=== PATIENT | male | born 1965 | race Caucasian/White ===

== ENCOUNTER → 2023-06-21 09:25 | Outpatient (REF) | payer BC, SELFPAY | LOC: HWRAD 09:25 | PROVIDERS: ATTENDING PHYSICIAN Family Medicine Sports Medicine; FAMILY PHYSICIAN Internal Medicine | DX: M84.351D Stress fracture, right femur, subsequent encounter for fracture with routine healing (principal); M25.551 Pain in right hip; M25.851 Other specified joint disorders, right hip; M16.11 Unilateral primary osteoarthritis, right hip | CPT/HCPCS: 77080 ==

== ENCOUNTER → 2023-06-28 09:17 | Outpatient (REF) | payer BC, SELFPAY | LOC: HWRAD 09:17 | PROVIDERS: ATTENDING PHYSICIAN Otolaryngology; FAMILY PHYSICIAN Internal Medicine | DX: R51.9 Headache, unspecified (principal); J32.2 Chronic ethmoidal sinusitis | CPT/HCPCS: 70450 ==

== ENCOUNTER 2024-03-10 23:15 | Emergency (ER) | payer BC, SELFPAY ==
[2024-03-10 23:17] VITALS: BP 139/91
--- NOTE | 2024-03-11 00:03 | ED.GENMED ---
History of Present Illness
General
Chief Complaint: Skin Surface Trauma
Time Seen by Provider: 03/11/24 00:03
History of Present Illness
History of Present Illness:
TIME OF INITIAL ENCOUNTER: 12 AM
HPI: Patient presents due to left hand laceration. Approximately 7 hours ago, the patient cut his left hand on glass as he tried to help his pick something up. He has no sensation of retained foreign body. He has excellent function of the
fingers.
EXAM:
GENERAL: Well appearing in no distress
HEENT: Moist oral mucosa
NEUROLOGIC: Excellent strength all extremities, no obvious coordination deficits
PSYCHIATRIC: Appropriate mental status, normal insight and judgement
EXTREMITIES: 2.5 cm V shaped laceration to the volar aspect of the left hand with excellent function of the fingers
SKIN: No rash, no lesions
NUMBER AND COMPLEXITY OF PROBLEMS ADDRESSED AT THE ENCOUNTER
� Chronic conditions affecting care: has had viral meningitis, GERD
� Acute Exacerbation and/or Progression of Chronic Illness: This is an acute problem
� Differential Diagnosis includes: Hand laceration, tendon involvement not noted on exam
AMOUNT AND/OR COMPLEXITY OF DATA TO BE REVIEWED AND ANALYZED
� I performed an independent evaluation of and my interpretation is:
EKG:
CT:
X-rays:
Laboratory Studies:
Other:
� Review of other/old records: The patient was seen here for colonoscopy in 2021
� Clinical information was obtained by an independent historian: I spoke to the at bedside
� Prescriptions/Medications Considered but not given: The patient is otherwise healthy, antibiotics not indicated
� Further testing considered but not performed: No indication for x-rays at this time
RISK OF COMPLICATIONS AND/OR MORBIDITY OR MORTALITY OF PATIENT MANAGEMENT
� Social determinants of health affecting care: Lives at home
� Discussion with other providers:
� Escalation of care including admission/observation vs risk of discharge considered: Laceration was cleaned, irrigated, expected for foreign body, and suture
ANY OTHER UPDATES:
Past History
Past History
ED Past Medical History: Other (Allergies, sinusitis, GERD)
ED Past Surgical History: Urological
Social History
Tobacco: Non-smoker
Personal:
Living: with family
Phy Exam
Physical Exam
Physical Exam:
See HPI
Course
Vital Signs
Initial and Last Documented VS:
Initial Vital Signs
Temp Pulse Resp BP Pulse Ox
98 F 73 16 139/91 99
03/10/24 23:17 03/10/24 23:17 03/10/24 23:17 03/10/24 23:17 03/10/24 23:17
Last Documented Vital Signs
Temp Pulse Resp BP Pulse Ox
98 F 73 16 139/91 99
03/10/24 23:17 03/10/24 23:17 03/10/24 23:17 03/10/24 23:17 03/10/24 23:17
Procedures
Laceration Closure
Left Volar Hand:
Status of Wound: clean
Description of Wound Edges: sharp
Preparation: cleaned with saline and other (Chlorhexidine)
Anesthesia: 1% Lidocaine with epi
Revision/Debridement: routine- no revision
Wound exploration: explored to base- no FB
Type of Closure: single layer closure
Skin Closure Material: 4-0 nylon
Number of sutures: 3
*Critical Care Note
Total Time (30-74mins, 75-104mins- exclusive of procedures): Not Applicable
ED Attending Note
-
Portions of this chart may have been created with voice recognition software.� Occasional wrong word or��sound alike� substitutions may have occurred due to the inherent limitations of voice recognition software.
Discharge Plan
Departure
Patient Disposition: Home (Routine Discharge)
Date of Disposition: 03/11/24
Time of Disposition: 00:29
Patient with high blood pressure during this ER visit?: Yes
Discharge Problem:
Laceration
Instructions: Laceration Repair With [place] (DC), BLOOD PRESSURE
Prescriptions:
No Action
ibuprofen [Advil] 200 MG tablet
2 tab PO
diclofenac sodium 75 MG tablet,delayed release (DR/EC)
75 mg PO BID
Activity Restrictions/Additional Instructions:
Have stitches removed by your doctor in approximately 10 days. You can switch to just a regular Band-Aid tomorrow and then afterward you could leave it open if you would prefer.
Interventions
Interventions:
*Risk Screen - Suicide Last Done: 03/10/24 23:17
*Neglect/Abuse Screening Last Done: 03/10/24 23:17
Discharge Date and Time
Print Language: KHMER
[2024-03-11] MEDS: ADACEL 0.5 ML IM (00:37)
== END 2024-03-11 00:52 | disposition home or self-care (01) ==
LOC: EMR 23:15
PROVIDERS: EMERGENCY PHYSICIAN Emergency Medicine; FAMILY PHYSICIAN Internal Medicine
DX: S61.412A Laceration without foreign body of left hand, initial encounter (principal); W25.XXXA Contact with sharp glass, initial encounter; Z23 Encounter for immunization
CPT/HCPCS: 12001; 90471; 99282; 90715

== ENCOUNTER → 2024-09-11 13:52 | Outpatient (REF) | payer BC, SELFPAY | LOC: HWRAD 13:52 | PROVIDERS: ATTENDING PHYSICIAN Internal Medicine Critical Care Medicine; FAMILY PHYSICIAN Internal Medicine | DX: R05.3 Chronic cough (principal) | CPT/HCPCS: 71046 ==

== ENCOUNTER → 2024-12-28 08:20 | Outpatient (REF) | payer BC, SELFPAY | LOC: HWRAD 08:20 | PROVIDERS: ATTENDING PHYSICIAN Internal Medicine Critical Care Medicine; FAMILY PHYSICIAN Internal Medicine | DX: R05.3 Chronic cough (principal) | CPT/HCPCS: 71250 ==